=== PATIENT | female | born 1940 | race Caucasian/White ===

== ENCOUNTER 2021-03-05 14:34 | Inpatient (IN) | payer OTHER ==
[~2021-03-05] VITALS: Ht 157.5 cm; Wt 75.8 kg
[2021-03-05 16:07] LABS: BASOPHIL 0.2 % (0-2); EOSINOPHIL 0.1 % (0-7); HCT 43.8 % (37.0-47.0); HGB 15.3 g/dl (12.5-16.0); LYMPHOCYTE 13.9 % (15-48); MCH 30.9 pg (25.0-31.0); MCHC 34.9 g/dL (32.0-36.0); MCV 88.5 fL (78.0-100.0); MONOCYTE 9.7 % (0-12); MPV 9.3 fL (6.0-9.5); NEUTROPHIL 75.3 % (41-80); NRBC 0; PLT 290 K/uL (150-400); RBC 4.95 M/uL (4.20-5.40); RDW 12.1 % (11.5-14.0); WBC 8.7 K/uL (4.0-10.5)
[2021-03-05 16:26] LABS: ALBUMIN 3.4 g/dL (3.4-5.0); BILIRUBIN - TOTAL 0.8 mg/dL (0.2-1.0); BUN/CREAT RATIO (CALC) 19.1 RATIO; CREATININE 0.68 mg/dL (0.51-0.95); GLOBULIN (CALCULATION) 4.5 g/dL; POTASSIUM 3.1 mmol/L (3.5-5.1); TOTAL PROTEIN 7.9 g/dL (6.4-8.2)
[2021-03-05 16:43] LABS: INFLUENZA A NAA NEGATIVE (NEGATIVE)
[2021-03-05 16:54] LABS: CORONAVIRUS 2019 SARS-COV-2 POSITIVE (NEGATIVE)
[2021-03-05] MEDS ORDERED: ACETAMINOPHEN-1 EAC1 PO (21:55)
[2021-03-05] MEDS ORDERED: SYNTHROID150 MCG PO (21:56)
[2021-03-05] MEDS ORDERED: SOMA350 MG PO (21:56)
[2021-03-05] MEDS ORDERED: FLURAZEPAM HCL30 MG PO (21:56)
[2021-03-05] MEDS ORDERED: VITAMIN D3125 MC1 PO (21:58)
[2021-03-05] MEDS ORDERED: CLARITIN10 MG PO (21:58)
[2021-03-05] MEDS ORDERED: VITAMIN E400 UNI6 PO (21:58)
[2021-03-05] MEDS ORDERED: ALIVE ONCE DAI1 EACH PO (21:59)
[2021-03-05] MEDS ORDERED: ANTIVERT25 MG PO (22:02)
[2021-03-05 23:26] LABS: BILIRUBIN NEGATIVE (NEGATIVE); BLOOD TRACE-INTACT Ery/uL (NEGATIVE); CLARITY CLEAR (CLEAR); COLOR YELLOW (YELLOW); GLUCOSE (U) NORMAL (NORMAL); LEUKOCYTES NEGATIVE Leu/uL (NEGATIVE); NITRITE NEGATIVE (NEGATIVE); PROTEIN NEGATIVE (NEGATIVE); UROBILINOGEN 0.2 mg/dL (0.2-1.0); pH 5.5 (5.0-9.0)
[2021-03-05 23:35] LABS: AMORPHOUS URATES CRYSTALS MODERATE; URINARY RBC RARE
[2021-03-05 23:36] LABS: INR 1.13 (0.9-1.2); PROTHROMBIN TIME 13.9 SECONDS (11.8-13.4); PTT 35.7 SECONDS (24.4-34.7)
[2021-03-05 23:46] LABS: MAGNESIUM 2.3 mg/dL (1.8-2.4)
[2021-03-06 04:04] LABS: BASOPHIL 0.2 % (0-2); EOSINOPHIL 0 % (0-7); HCT 39.8 % (37.0-47.0); HGB 13.9 g/dl (12.5-16.0); LYMPHOCYTE 13.7 % (15-48); MCH 30.6 pg (25.0-31.0); MCHC 34.9 g/dL (32.0-36.0); MCV 87.7 fL (78.0-100.0); MONOCYTE 2.4 % (0-12); MPV 9.1 fL (6.0-9.5); NEUTROPHIL 82.3 % (41-80); NRBC 0; PLT 274 K/uL (150-400); RBC 4.54 M/uL (4.20-5.40); RDW 12.1 % (11.5-14.0); WBC 4.2 K/uL (4.0-10.5)
[2021-03-06 04:32] LABS: BILIRUBIN - TOTAL 0.4 mg/dL (0.2-1.0); BUN/CREAT RATIO (CALC) 20.4 RATIO; CREATININE 0.54 mg/dL (0.51-0.95); GLOBULIN (CALCULATION) 3.9 g/dL; POTASSIUM 5.7 mmol/L (3.5-5.1); TOTAL PROTEIN 6.9 g/dL (6.4-8.2)
[2021-03-08 07:28] LABS: BASOPHIL 0.1 % (0-2); EOSINOPHIL 0 % (0-7); HCT 40.1 % (37.0-47.0); LYMPHOCYTE 8.3 % (15-48); MCH 30.6 pg (25.0-31.0); MCHC 34.9 g/dL (32.0-36.0); MCV 87.6 fL (78.0-100.0); MONOCYTE 6.7 % (0-12); MPV 9.6 fL (6.0-9.5); NEUTROPHIL 84.3 % (41-80); NRBC 0; PLT 442 K/uL (150-400); RBC 4.58 M/uL (4.20-5.40); RDW 12.2 % (11.5-14.0); WBC 11.3 K/uL (4.0-10.5)
[2021-03-08 08:26] LABS: BUN/CREAT RATIO (CALC) 38.9 RATIO; CREATININE 0.54 mg/dL (0.51-0.95); MAGNESIUM 2.3 mg/dL (1.8-2.4); POTASSIUM 3.6 mmol/L (3.5-5.1)
[2021-03-08] MEDS ORDERED: PREDNISONE 20MG20 MG PO (11:57)
--- NOTE | 2021-03-08 13:23 | NUR ---
SPOKE WITH PT VIA TC. SHE WOULD LIKE HER OXYGEN TO COME FROM [facility]. PT. WILL D/C HOME THIS DATE.
== END 2021-03-08 15:36 | disposition home or self-care (01) | DRG 177 ==
LOC: EDBD 14:34 → FER 14:34 → FMS 19:51
PROVIDERS: Allergy & Immunology; Physician Assistant; ADMIT Internal Medicine
PROC: XW033E5 Introduction of Remdesivir Anti-infective into Peripheral Vein, Percutaneous Approach, New Technology Group 5 (ICD-10-PCS; principal; 2021-03-05)
PROC: 8E0ZXY6 Isolation (ICD-10-PCS; 2021-03-05)
PROC: XW0DXM6 Introduction of Baricitinib into Mouth and Pharynx, External Approach, New Technology Group 6 (ICD-10-PCS; 2021-03-06)
DX: U07.1 COVID-19 (principal); J12.82 Pneumonia due to coronavirus disease 2019; J96.01 Acute respiratory failure with hypoxia; E03.9 Hypothyroidism, unspecified; M54.50 Low back pain, unspecified; G89.29 Other chronic pain; K21.9 Gastro-esophageal reflux disease without esophagitis; J42 Unspecified chronic bronchitis; E87.6 Hypokalemia; R73.9 Hyperglycemia, unspecified; T38.0X5A Adverse effect of glucocorticoids and synthetic analogues, initial encounter; Z99.81 Dependence on supplemental oxygen; Z90.49 Acquired absence of other specified parts of digestive tract; Z90.710 Acquired absence of both cervix and uterus; Z79.899 Other long term (current) drug therapy; Z88.0 Allergy status to penicillin; Z85.828 Personal history of other malignant neoplasm of skin; Z98.890 Other specified postprocedural states
CPT/HCPCS: 36415; 36600; 71045; 71275; 80048; 80053; 80061; 81001; 82550; 82728; 82803; 82962; 83605; 83735; 84145; 84484; 85025; 85379; 85610; 85730; 86140; 93005; 94010; 94640; 94760; 94762; C9399; J1100; J1650; J2920; J3480; J7050; U0002

== ENCOUNTER 2021-10-18 20:26 | Emergency (ER) | payer OTHER ==
[~2021-10-18 20:26] MED LIST: ACETAMINOPHEN-1 EAC1 PO; ALIVE ONCE DAI1 EACH PO; ANTIVERT25 MG PO; CLARITIN10 MG PO; FLURAZEPAM HCL30 MG PO; PREDNISONE 20MG20 MG PO; SOMA350 MG PO; SYNTHROID150 MCG PO; VITAMIN D3125 MC1 PO; VITAMIN E400 UNI6 PO
== END 2021-10-18 21:29 | disposition home or self-care (01) ==
LOC: FER 20:26
DX: S00.03XA Contusion of scalp, initial encounter (principal); S09.90XA Unspecified injury of head, initial encounter; Z86.711 Personal history of pulmonary embolism; Z79.01 Long term (current) use of anticoagulants; W07.XXXA Fall from chair, initial encounter; Y92.009 Unspecified place in unspecified non-institutional (private) residence as the place of occurrence of the external cause
CPT/HCPCS: 70450; 72125